=== PATIENT | male | born 1930 | race Caucasian/White ===

== ENCOUNTER 2017-04-01 09:57 | Observation (INO) | payer MEDICARE, BC ==
--- NOTE | 2017-04-01 10:15 | EDM.PDOC ---
ED HPI GENERAL MEDICAL PROBLEM - General Chief Complaint: General Stated Complaint: SYNCOPE & FALL. [facility] Time Seen by Provider: 04/01/17 09:57 Source of Information: Reports: Patient, EMS, EMS Notes Reviewed, Family, RN, RN Notes Reviewed History Limitations: Reports: No Limitations, Other ([place]) - History of Present Illness INITIAL COMMENTS - FREE TEXT/NARRATIVE: Pt presents to the ER per [facility] with c/o being weak and falling. Pt family states he fell last evening x2, and once today. Daughter states his has been ill recently as well. Pt states history of atrial fibrillation on Coumadin. For that reason, and patient age, a trauma code was called. Patient denies hitting his head or losing consciousness. Admits to pain in the sternum/ xyphoid process area as he states he hit the table on the way down. Pt is not in a c-collar or spine boarded upon arrival to the department. Patient denies any dizziness prior to falling. Patient states his right lower leg and foot have been edematous for over a year. Pt is alert and talking upon arrival, does have a history of dementia. GCS upon arrival was 15. Rates pain 2/10. Onset: Sudden Onset Date: 03/31/17 Location: Reports: Chest, Abdomen Middle Chest Pain Score (Numeric/FACES): 6 - Related Data Allergies Allergy/AdvReac Type Severity Reaction Status Date / Time oxycodone Allergy Confusion Verified 04/01/17 12:35 Home Meds: Home Meds Metoprolol Tartrate [Lopressor] 50 mg PO DAILY 04/01/17 [History] Simvastatin [Zocor] 1 tab PO DAILY 04/01/17 [History] Warfarin [Coumadin] 1 tab PO DAILY 04/01/17 [History] metFORMIN HCl [Metformin HCl] 1 tab PO TID 04/01/17 [History] ED ROS GENERAL - Review of Systems Review Of Systems: ROS reveals no pertinent complaints other than HPI. ED EXAM, GENERAL - Physical Exam Exam: See Below Exam Limited By: Other ([place]) Eye Exam: Bilateral Eye: EOMI, Normal Inspection, PERRL (Sluggish) Ears: Normal External Exam, Hearing Loss, Other (Hearing aids bilaterally) Ear Exam: Bilateral Ear: Auricle Normal, Canal Normal, TM normal Nose: Normal Inspection Throat/Mouth: Normal Inspection, Normal Voice, No Airway Compromise Head: Atraumatic, Normocephalic Neck: Normal Inspection, Supple, Non-Tender, Full Range of Motion Respiratory/Chest: No Respiratory Distress, No Accessory Muscle Use, Decreased Breath Sounds, Crackles (throughout), Other (tenderness to sternum/xyphoid process/lower right rib cage) Cardiovascular: Normal Peripheral Pulses, Irregularly Irregular, Other (Edema right lower leg/foot) Peripheral Pulses: 1+: Dorsalis Pedis (L), Dorsalis Pedis (R), 2+: Radial (L), Radial (R) GI/Abdominal: Normal Bowel Sounds, Soft, Tender (RUQ) (Male) Exam: Deferred Rectal (Males) Exam: Deferred Back Exam: Normal Inspection, Decreased Range of Motion Extremities: Normal Inspection, Normal Range of Motion, Non-Tender, Normal Capillary Refill. No: No Pedal Edema Neurological: Alert, Oriented, No Motor/Sensory Deficits, Other (Hx dementia) Psychiatric: Normal Affect, Normal Mood Skin Exam: Warm, Dry, Intact, Normal Color, No Rash Lymphatic: No Adenopathy EKG INTERPRETATION EKG Date: 04/01/17 Time: 10:02 Rhythm: A-Fib Rate (Beats/Min): 70 Comparison: NA - No Prior EKG Course - Vital Signs Last Recorded V/S: Last Vital Signs Temp 97 F 04/01/17 10:00 Pulse 71 04/01/17 10:00 Resp 20 04/01/17 10:00 BP 171/90 H 04/01/17 10:00 Pulse Ox 98 04/01/17 10:00 - Orders/Labs/Meds Orders: Active Orders 24 hr Category Date Time Status Patient Status [ADT] Routine ADT 04/01/17 12:38 Active Antiembolic Devices [RC] PER UNIT ROUTINE Care 04/01/17 12:39 Active EKG Documentation Completion [RC] STAT Care 04/01/17 09:59 Active Glucose [Blood Glucose Check, Bedside] [RC] QIDACANDBED Care 04/01/17 12:35 Active Oxygen Therapy [RC] PRN Care 04/01/17 12:38 Active Oxygen Therapy, ED [RC] ASDIRECTED Care 04/01/17 10:01 Active Peripheral IV Care [RC] . DIRECTED Care 04/01/17 10:02 Active RT Aerosol Therapy [RC] ASDIRECTED Care 04/01/17 12:37 Active Telemetry Monitoring [Cardiac Monitoring] [RC] . Care 04/01/17 12:37 Active DIRECTED Up With Assistance [RC] ASDIRECTED Care 04/01/17 12:38 Active VTE/DVT Education [RC] PER UNIT ROUTINE Care 04/01/17 12:38 Active Vital Signs [RC] Q4H Care 04/01/17 12:38 Active OT Evaluation and Treatment [CONS] Routine Cons 04/01/17 12:35 Active PT Evaluation and Treatment [CONS] Routine Cons 04/01/17 12:35 Active Consistent Carbohydrate Diet [DIET] Diet 04/01/17 Dinner Active Chest 2V [CR] Urgent Exams 04/01/17 10:01 Stop Req BASIC METABOLIC PANEL,BMP [CHEM] AM Lab 04/02/17 05:15 Ordered CBC WITH AUTO DIFF [HEME] AM Lab 04/02/17 05:15 Ordered INR,PT,PROTHROMBIN TIME [COAG] AM Lab 04/02/17 05:11 Ordered INR,PT,PROTHROMBIN TIME [COAG] AM Lab 04/03/17 05:11 Ordered INR,PT,PROTHROMBIN TIME [COAG] AM Lab 04/04/17 05:11 Ordered INR,PT,PROTHROMBIN TIME [COAG] AM Lab 04/05/17 05:11 Ordered INR,PT,PROTHROMBIN TIME [COAG] AM Lab 04/06/17 05:11 Ordered INR,PT,PROTHROMBIN TIME [COAG] AM Lab 04/07/17 05:11 Ordered UA W/MICROSCOPIC [URIN] Stat Lab 04/01/17 09:59 Ordered Acetaminophen [Tylenol] Med 04/01/17 12:38 Active 650 mg PO Q4H PRN Albuterol/Ipratropium [DuoNeb 3.0-0.5 MG/3 ML] Med 04/01/17 12:36 Active 3 ml NEB Q6HRRT PRN Insulin Aspart [NovoLOG] Med 04/01/17 17:00 Active See Protocol SUBCUT TIDAC Metoprolol Succinate [Toprol XL] Med 04/02/17 09:00 Active 50 mg PO DAILY Simvastatin [Zocor] Med 04/02/17 21:00 Active 20 mg PO BEDTIME Sodium Chloride 0.9% [Saline Flush] Med 04/01/17 09:59 Active 10 ml FLUSH ASDIRECTED PRN Warfarin Pharmacy to Dose [Pharmacy to Dose - Warfarin] Med 04/01/17 12:45 Pending 1 dose .XX ASDIRECTED Zolpidem [Ambien] Med 04/01/17 12:38 Active 5 mg PO BEDTIME PRN metFORMIN [Glucophage] Med 04/01/17 18:00 Active 500 mg PO TIDMEALS Antiembolic Hose [OM.PC] Per Unit Routine Oth 04/01/17 12:39 Ordered Peripheral IV Insertion Adult [OM.PC] Stat Oth 04/01/17 09:59 Ordered Resuscitation Status Routine Resus Stat 04/01/17 12:38 Ordered Medication Orders Acetaminophen (Tylenol) 650 mg PO Q4H PRN PRN Reason: Pain (Mild 1-3)/fever Albuterol/Ipratropium (Duoneb 3.0-0.5 Mg/3 Ml) 3 ml NEB Q6HRRT PRN PRN Reason: sob Insulin Aspart (Novolog) 0 unit SUBCUT TIDAC GABRIELLE PRN Reason: Protocol Metformin HCl (Glucophage) 500 mg PO TIDMEALS GABRIELLE Metoprolol Succinate (Toprol Xl) 50 mg PO DAILY GABRIELLE Simvastatin (Zocor) 20 mg PO BEDTIME GAB[facility] Sodium Chloride (Saline Flush) 10 ml FLUSH ASDIRECTED PRN PRN Reason: Keep Vein Open Warfarin Sodium (Pharmacy To Dose - Warfarin) 1 dose .XX ASDIRECTED GABRIELLE Zolpidem Tartrate (Ambien) 5 mg PO BEDTIME PRN PRN Reason: Sleep Labs: Laboratory Tests 04/01/17 04/01/17 04/01/17 Range/Units 10:16 10:16 10:16 WBC 8.7 (5.0-10.0) 10^3/uL RBC 5.39 (4.6-6.2) 10^6/uL Hgb 16.6 (14.0-18.0) g/dL Hct 49.4 (40.0-54.0) % MCV 91.7 (80-100) fL MCH 30.8 (27.0-34.0) pg MCHC 33.6 (33.0-35.0) g/dL Plt Count 154 (150-450) 10^3/uL Neut % (Auto) 68.6 (42.2-75.2) % Lymph % (Auto) 17.4 L (20.5-50.1) % [place] % (Auto) 8.9 H (2-8) % Eos % (Auto) 4.6 H (1.0-3.0) % Baso % (Auto) 0.5 (0.0-1.0) % PT (9.0-12.0) SEC INR (0.9-1.2) Sodium 141 (135-145) mmol/L Potassium 4.1 (3.6-5.0) mmol/L Chloride 104 (101-111) mmol/L Carbon Dioxide 28.0 (21.0-31.0) mmol/L Anion Gap 13.1 BUN 21 H (7-18) mg/dL Creatinine 1.5 H (0.6-1.3) mg/dL Est Cr Clr Drug Dosing TNP Estimated GFR (MDRD) 44 BUN/Creatinine Ratio 14.00 Glucose 121 H (74-105) mg/dL Uric Acid (2.6-7.2) mg/dL Calcium 9.5 (8.4-10.2) mg/dl Total Bilirubin 1.0 (0.2-1.0) mg/dL AST 27 (10-42) IU/L ALT 15 (10-60) IU/L Alkaline Phosphatase 46 (42-121) IU/L Creatine Kinase 112 (26-174) IU/L Creatine Kinase Index 4.9 H (0-2.4) % CK-MB (CK-2) 5.50 H (0.4-4.7) ng/mL Troponin I < 0.02 (0.00-0.02) ng/ml B-Natriuretic Peptide 312 H (0-100) pg/ml Total Protein 7.3 (6.7-8.2) g/dl Albumin 3.9 (3.2-5.5) g/dl Globulin 3.4 Albumin/Globulin Ratio 1.15 18 04/01/17 Range/Units 10:16 10:16 WBC (5.0-10.0) 10^3/uL RBC (4.6-6.2) 10^6/uL Hgb (14.0-18.0) g/dL Hct (40.0-54.0) % MCV (80-100) fL MCH (27.0-34.0) pg MCHC (33.0-35.0) g/dL Plt Count (150-450) 10^3/uL Neut % (Auto) (42.2-75.2) % Lymph % (Auto) (20.5-50.1) % [place] % (Auto) (2-8) % Eos % (Auto) (1.0-3.0) % Baso % (Auto) (0.0-1.0) % PT 22.9 H (9.0-12.0) SEC INR 2.3 H (0.9-1.2) Sodium (135-145) mmol/L Potassium (3.6-5.0) mmol/L Chloride (101-111) mmol/L Carbon Dioxide (21.0-31.0) mmol/L Anion Gap BUN (7-18) mg/dL Creatinine (0.6-1.3) mg/dL Est Cr Clr Drug Dosing Estimated GFR (MDRD) BUN/Creatinine Ratio Glucose (74-105) mg/dL Uric Acid 9.2 H (2.6-7.2) mg/dL Calcium (8.4-10.2) mg/dl Total Bilirubin (0.2-1.0) mg/dL AST (10-42) IU/L ALT (10-60) IU/L Alkaline Phosphatase (42-121) IU/L Creatine Kinase (26-174) IU/L Creatine Kinase Index (0-2.4) % CK-MB (CK-2) (0.4-4.7) ng/mL Troponin I (0.00-0.02) ng/ml B-Natriuretic Peptide (0-100) pg/ml Total Protein (6.7-8.2) g/dl Albumin (3.2-5.5) g/dl Globulin Albumin/Globulin Ratio Meds: Medications Generic Name Dose Route Start Last Admin Trade Name Freq PRN Reason Stop Dose Admin Acetaminophen 650 mg 04/01/17 12:38 Tylenol PO Q4H PRN Pain (Mild 1-3)/fever Albuterol/Ipratropium 3 ml 04/01/17 12:36 Duoneb 3.0-0.5 Mg/3 Ml NEB Q6HRRT PRN sob Insulin Aspart 0 unit 04/01/17 17:00 Novolog SUBCUT TIDAC GABRIELLE Protocol Metformin HCl 500 mg 04/01/17 18:00 Glucophage PO TIDMEALS [facility] Metoprolol Succinate 50 mg 04/02/17 09:00 Toprol Xl PO DAILY [facility] Simvastatin 20 mg 04/02/17 21:00 Zocor PO BEDTIME [facility] Sodium Chloride 10 ml 04/01/17 09:59 Saline Flush FLUSH ASDIRECTED PRN Keep Vein Open Warfarin Sodium 1 dose 04/01/17 12:45 Pharmacy To Dose - Warfarin .XX ASDIRECTED [facility] Zolpidem Tartrate 5 mg 04/01/17 12:38 Ambien PO BEDTIME PRN Sleep - Radiology Interpretation Free Text/Narrative:: Chest CT without contrast: Gallstones, no acute findings See rad report Departure - Departure Time of Disposition: 12:25 Disposition: Refer to Observation Clinical Impression: Weakness Chronic renal failure Qualifiers: Chronic kidney disease stage: unspecified stage Qualified Code(s): N18.9 - Chronic kidney disease, unspecified Fall at home Qualifiers: Encounter type: initial encounter Qualified Code(s): W19.XXXA - Unspecified fall, initial encounter - Discharge Information Referrals: PCP,None [Primary Care Provider] - Forms: ED Department Discharge - My Orders Last 24 Hours: My Active Orders 04/01/17 09:59 EKG Documentation Completion [RC] STAT UA W/MICROSCOPIC [URIN] Stat Sodium Chloride 0.9% [Saline Flush] 10 ml FLUSH ASDIRECTED PRN Peripheral IV Insertion Adult [OM.PC] Stat 04/01/17 10:01 Oxygen Therapy, ED [RC] ASDIRECTED Chest 2V [CR] Urgent 04/01/17 10:02 Peripheral IV Care [RC] . DIRECTED - Assessment/Plan Last 24 Hours: My Active Orders 04/01/17 09:59 EKG Documentation Completion [RC] STAT UA W/MICROSCOPIC [URIN] Stat Sodium Chloride 0.9% [Saline Flush] 10 ml FLUSH ASDIRECTED PRN Peripheral IV Insertion Adult [OM.PC] Stat 04/01/17 10:01 Oxygen Therapy, ED [RC] ASDIRECTED Chest 2V [CR] Urgent 04/01/17 10:02 Peripheral IV Care [RC] . DIRECTED
[2017-04-01 10:44] LABS: CHLORIDE,CL 104 mmol/L (101-111); SODIUM,NA 141 mmol/L (135-145)
--- NOTE | 2017-04-01 11:35 | CT ---
CLINICAL HISTORY: 86-year-old 188 pound hypertensive, diabetic male on Coumadin with chest pain/SOB ( 3 falls in the past 2 days, hit table anterior chest wall and complaining of lower rib pain R >L, in midline, near sternum). SCAN TECHNIQUE: Volume acquisition of data from an emergency unenhanced CT scan of the chest and uppe r abdomen obtained while the patient was lying supine on the Siemens multislice scanner [place], [place]. All data archived in the PACS system for storage, reformatting ax ial/sagittal/coronal planes and study (lung/bone/mediastinal windows). INTERPRETATION: 1. Extensive atheromatous disease, i.e., calcifications coronary arteries, aortic valve, and normal c aliber ectatic thoracic aorta. 2. Cardiomegaly. No pericardial effusion, cephalization of vascular flow, signs of alveolar edema or dependent pleural fluid effusion. 3. Cardiac pacemaker anterior upper left chest wall (leads intact). 4. No sign of rib fracture, acute spine fracture or spondylolisthesis (old compression fracture T2). Hypertrophic spondylosis. 5. Peribronchial "cuffing", numerous subpleural cysts or blebs, and platelike atelectasis in the righ t lung base posteriorly. 6. No lung mass or significant hilar/mediastinal lymphadenopathy. No lung contusion. No focal lobar p neumonia. No pneumothorax. 7. Cholelithiasis. Unenhanced upper abdominal viscera otherwise unremarkable. No ascites or retroperi toneal hematoma. CONCLUSION: Cholelithiasis. Cardiomegaly without signs of heart failure (cardiac pacemaker). Liver an d spleen unremarkable. No acute chest fracture, lung contusion or pneumothorax. No hematoma, pleural effusion or ascites.
[2017-04-01] MEDS ORDERED: Albuterol/Ipratropium 3.0-0.5 MG/3 ML Neb Soln NEB PRN (12:36)
[2017-04-01] MEDS ORDERED: Zolpidem 5 MG Tab PO PRN (12:38)
[2017-04-01] MEDS ORDERED: Acetaminophen 325 MG Tab PO PRN (12:38)
--- NOTE | 2017-04-01 12:47 | PCM.HP ---
H&P History of Present Illness - General Date of Service: 04/01/17 Admit Problem/Dx: Admission Diagnosis/Problem Admission Diagnosis/Problem Fall Source of Information: Patient, Family - History of Present Illness Initial Comments - Free Text/Narative: The patient is an 86-year-old gentleman with a history of diabetes, atrial fibrillation, on anticoagulation, COPD not on treatment. The patient has been living with at home and normally walking with a walker. appear to have had recently an upper respiratory tract infection. The patient did not have fever or chills are similar symptoms though. He has a chronic nasal drainage and cough but that did not change. On 31 March and 01 April morning the patient fell 3 times. He was not using the walker one time. The other time that he fell To the kitchen counter. No apparent loss of consciousness. The patient feels this was an accident. No apparent chest pain, nausea, syncopal episode associated with this. He does complain of anterior lower chest and the right sided lower rib cage pain since then he fell into the kitchen counter. He has been having right lower extremity swelling for about 2 months he says. Middle Chest Pain Score (Numeric/FACES): 6 - Related Data Allergies/Adverse Reactions: Allergies Allergy/AdvReac Type Severity Reaction Status Date / Time oxycodone Allergy Confusion Verified 04/01/17 12:35 Home Medications: Home Meds Metoprolol Tartrate [Lopressor] 50 mg PO DAILY 04/01/17 [History] Simvastatin [Zocor] 1 tab PO DAILY 04/01/17 [History] Warfarin [Coumadin] 1 tab PO DAILY 04/01/17 [History] metFORMIN HCl [Metformin HCl] 1 tab PO TID 04/01/17 [History] Past Medical History Cardiovascular History: Reports: Afib, CAD, High Cholesterol, Hypertension Respiratory History: Reports: COPD Musculoskeletal History: Reports: Gout Endocrine/Metabolic History: Reports: Diabetes, Type II - Past Surgical History Cardiovascular Surgical History: Reports: Pacer Social & Family History - Tobacco Use Smoking Status *Q: Former Smoker Years of Tobacco use: 20 Packs/Tins Daily: 1 Used Tobacco, but Quit: Yes Month Tobacco Last Used: 1989 - Alcohol Use Days Per Week of Alcohol Use: 2 Number of Drinks Per Day: 2 Total Drinks Per Week: 4 - Recreational Drug Use Recreational Drug Use: No H&P Review of Systems - Review of Systems: Review Of Systems: See Below General: Denies: Fever, Chills Pulmonary: Denies: Shortness of Breath, Wheezing Cardiovascular: Reports: Chest Pain (Since the fall), Edema (Right lower extremity). Denies: Palpitations Gastrointestinal: Denies: Abdominal Pain Psychiatric: Reports: Other (Has mild dementia). Denies: Confusion Neurological: Denies: Seizure, Syncope Exam - Exam Exam: See Below - Vital Signs Vital Signs: Last Vital Signs Temp 36.1 C 04/01/17 10:00 Pulse 71 04/01/17 10:00 Resp 20 04/01/17 10:00 BP 171/90 H 04/01/17 10:00 Pulse Ox 98 04/01/17 10:00 Weight: 85.275 kg - Exam Quality Assessment: Supplemental Oxygen General: Alert, Oriented, Cooperative Neck: Supple Lungs: Normal Respiratory Effort, Decreased Breath Sounds. No: Rhonchi, Wheezing Cardiovascular: Irregular Rhythm. No: Bradycardia, Tachycardia Extremities: Pedal Edema (Right lower extremity 1-2+) Skin: Warm, Dry Neuro Extensive - Mental Status: Alert, Oriented x3, Normal Mood/Affect, Normal Cognition Neuro Extensive - Motor, Sensory, Reflexes: No: Receptive Aphasia, Expressive Aphasia, Hemeplagia (R), Hemeplagia (L), Abnormal Finger to Nose Psychiatric: Alert, Normal Affect, Normal Mood - Patient Data Result Diagrams: 04/01/17 10:16 04/01/17 10:16 EKG INTERPRETATION EKG Date: 04/01/17 Rhythm: A-Fib *Q Meaningful Use (ADM) - VTE *Q VTE Criteria *Q: - Stroke *Q Stroke Criteria *Q: - AMI *Q AMI Criteria *Q: - Problem List (1) Chronic renal failure SNOMED Code(s): 78523764 ICD Code: N18.9 - CHRONIC KIDNEY DISEASE, UNSPECIFIED Status: Acute Current Visit: Yes Qualifiers: Chronic kidney disease stage: unspecified stage Qualified Code(s): N18.9 - Chronic kidney disease, unspecified (2) Fall at home SNOMED Code(s): 25303441 ICD Code: W19.XXXA - UNSPECIFIED FALL, INITIAL ENCOUNTER; Y92.009 - UNSP PLACE IN UNSP NON-INSTITUT (PRIVATE) RESIDENCE PLACE Status: Acute Current Visit: Yes Qualifiers: Encounter type: initial encounter Qualified Code(s): W19.XXXA - Unspecified fall, initial encounter; Y92.009 - Unspecified place in unspecified non-institutional (private) residence as the place of occurrence of the external cause; Y92.009 - Unspecified place in unspecified non-institutional ( private) residence as the place of occurrence of the external cause (3) Weakness SNOMED Code(s): 05966017 ICD Code: R53.1 - WEAKNESS Status: Acute Current Visit: Yes Problem List Initiated/Reviewed/Updated: Yes Orders Last 24hrs: Active Orders 24 hr Category Date Time Status Patient Status [ADT] Routine ADT 04/01/17 12:38 Ordered Antiembolic Devices [RC] PER UNIT ROUTINE Care 04/01/17 12:39 Ordered Glucose [Blood Glucose Check, Bedside] [RC] QIDACANDBED Care 04/01/17 12:35 Ordered Oxygen Therapy [RC] PRN Care 04/01/17 12:38 Ordered RT Aerosol Therapy [RC] ASDIRECTED Care 04/01/17 12:37 Ordered Telemetry Monitoring [Cardiac Monitoring] [RC] . Care 04/01/17 12:37 Ordered DIRECTED Up With Assistance [RC] ASDIRECTED Care 04/01/17 12:38 Ordered VTE/DVT Education [RC] PER UNIT ROUTINE Care 04/01/17 12:38 Ordered Vital Signs [RC] Q4H Care 04/01/17 12:38 Ordered OT Evaluation and Treatment [CONS] Routine Cons 04/01/17 12:35 Ordered PT Evaluation and Treatment [CONS] Routine Cons 04/01/17 12:35 Ordered Consistent Carbohydrate Diet [DIET] Diet 04/01/17 Dinner Ordered BASIC METABOLIC PANEL,BMP [CHEM] AM Lab 04/02/17 05:15 Ordered CBC WITH AUTO DIFF [HEME] AM Lab 04/02/17 05:15 Ordered INR,PT,PROTHROMBIN TIME [COAG] AM Lab 04/02/17 05:11 Ordered INR,PT,PROTHROMBIN TIME [COAG] AM Lab 04/03/17 05:11 Ordered INR,PT,PROTHROMBIN TIME [COAG] AM Lab 04/04/17 05:11 Ordered INR,PT,PROTHROMBIN TIME [COAG] AM Lab 04/05/17 05:11 Ordered INR,PT,PROTHROMBIN TIME [COAG] AM Lab 04/06/17 05:11 Ordered INR,PT,PROTHROMBIN TIME [COAG] AM Lab 04/07/17 05:11 Ordered INR,PT,PROTHROMBIN TIME [COAG] Routine Lab 04/01/17 12:35 Ordered Acetaminophen [Tylenol] Med 04/01/17 12:38 Ordered 650 mg PO Q4H PRN Albuterol/Ipratropium [DuoNeb 3.0-0.5 MG/3 ML] Med 04/01/17 12:36 Ordered 3 ml NEB Q6HRRT PRN Insulin Aspart [NovoLOG] Med 04/01/17 17:00 Ordered See Protocol SUBCUT TIDAC Metoprolol Succinate [Toprol XL] Med 04/02/17 09:00 Ordered 1 tab PO DAILY Simvastatin [Zocor] Med 04/02/17 09:00 Ordered 1 tab PO DAILY Warfarin Pharmacy to Dose [Pharmacy to Dose - Warfarin] Med 04/01/17 12:45 Ordered 1 dose .XX ASDIRECTED Zolpidem [Ambien] Med 04/01/17 12:38 Ordered 5 mg PO BEDTIME PRN metFORMIN [Glucophage] Med 04/01/17 14:00 Ordered 1 tab PO TID Antiembolic Hose [OM.PC] Per Unit Routine Oth 04/01/17 12:39 Ordered Resuscitation Status Routine Resus Stat 04/01/17 12:38 Ordered Medication Orders Acetaminophen (Tylenol) 650 mg PO Q4H PRN PRN Reason: Pain (Mild 1-3)/fever Albuterol/Ipratropium (Duoneb 3.0-0.5 Mg/3 Ml) 3 ml NEB Q6HRRT PRN PRN Reason: sob Insulin Aspart (Novolog) 0 unit SUBCUT TIDAC GABRIELLE PRN Reason: Protocol Metformin HCl (Glucophage) 500 mg PO TIDMEALS GABRIELLE Metoprolol Succinate (Toprol Xl) 50 mg PO DAILY [facility] Simvastatin (Zocor) 20 mg PO BEDTIME [facility] Sodium Chloride (Saline Flush) 10 ml FLUSH ASDIRECTED PRN PRN Reason: Keep Vein Open Warfarin Sodium (Pharmacy To Dose - Warfarin) 1 dose .XX ASDIRECTED [facility] Zolpidem Tartrate (Ambien) 5 mg PO BEDTIME PRN PRN Reason: Sleep Assessment/Plan Comment:: The patient is an 86-year-old gentleman who has been living at home with . He has a history of atrial fibrillation, diabetes, chronic anticoagulation, COPD. #1 falls No apparent associated syncope, neurological deficit, seizure, chest pain We'll consult physical and occupational therapy. Follow the patient's symptoms closely We'll monitor on telemetry for potential arrhythmia Will follow blood sugars for potential hypoglycemia Follow vital signs #2 right lower extremity edema Concern for possible DVT although the patient has been on Coumadin I doubt that there is pulmonary embolism associated with this. The following does not appear to be syncopal Will check INR Will continue Coumadin and maintain a therapeutic level At this point I don't think vascular ultrasound would change the treatment plan and the need for anticoagulation. #3 diabetes Continue metformin Follow blood sugars and use supplemental insulin and hypoglycemia treatment as needed #4 atrial fibrillation Appears to have controlled ventricular rate, continue metoprolol, monitor on telemetry #5 history of COPD The patient has not been on therapy Will monitor for possible oxygen need Target saturation will be 88 and above
[2017-04-01] MEDS: Insulin Aspart 100 Units/ML 3 ML Pen SUBCUT SCH (17:16)
[2017-04-01] MEDS: metFORMIN 500 MG Tab PO SCH (18:28)
[2017-04-01] MEDS: Sodium Chloride 0.9% 10 ML Syringe FLUSH PRN (20:31)
[2017-04-02 06:42] LABS: CHLORIDE,CL 105 mmol/L (101-111); SODIUM,NA 141 mmol/L (135-145)
[2017-04-02] MEDS: metFORMIN 500 MG Tab PO SCH (08:38)
[2017-04-02] MEDS: Insulin Aspart 100 Units/ML 3 ML Pen SUBCUT SCH (08:39)
[2017-04-02] MEDS ORDERED: Metoprolol Succinate 50 MG Tab.ER PO SCH (09:00)
--- NOTE | 2017-04-02 10:06 | PCM.DCSUM1 ---
Discharge Summary - Hospital Course Free Text/Narrative:: The patient is an 86-year-old gentleman who has been living at home with . He has a history of atrial fibrillation, diabetes, chronic anticoagulation, COPD. Presented with fall episodes #1 falls No apparent associated syncope, neurological deficit, seizure, cardiac event Consulted physical and occupational therapy. Family did not want home health visit. on telemetry there was no arrhythmia no hypoglycemia stable vital signs #2 right lower extremity edema Concern for possible DVT although the patient has been on Coumadin I doubt that there is pulmonary embolism associated with this. INR remained therapeutic Will continue Coumadin and maintain a therapeutic level suggested f/up at the clinic for vascular ultrasound. #3 diabetes Continue metformin #4 atrial fibrillation Appears to have controlled ventricular rate, continue metoprolol #5 history of COPD The patient has not been on therapy Was monitored for possible oxygen need - did not need at rest, night, walking - Discharge Data Discharge Date: 04/02/17 Discharge Disposition: Home, Self-Care 01 Condition: Good - Discharge Diagnosis/Problem(s) (1) Chronic renal failure SNOMED Code(s): 29229440 ICD Code: N18.9 - CHRONIC KIDNEY DISEASE, UNSPECIFIED Status: Acute Current Visit: Yes Qualifiers: Chronic kidney disease stage: unspecified stage Qualified Code(s): N18.9 - Chronic kidney disease, unspecified (2) Fall at home SNOMED Code(s): 42097773 ICD Code: W19.XXXA - UNSPECIFIED FALL, INITIAL ENCOUNTER; Y92.009 - UNSP PLACE IN UNSP NON-INSTITUT (PRIVATE) RESIDENCE PLACE Status: Acute Current Visit: Yes Qualifiers: Encounter type: initial encounter Qualified Code(s): W19.XXXA - Unspecified fall, initial encounter; Y92.009 - Unspecified place in unspecified non-institutional (private) residence as the place of occurrence of the external cause; Y92.009 - Unspecified place in unspecified non-institutional ( private) residence as the place of occurrence of the external cause (3) Weakness SNOMED Code(s): 09469043 ICD Code: R53.1 - WEAKNESS Status: Acute Current Visit: Yes - Patient Instructions Diet: Diabetic Diet Activity: As Tolerated - Discharge Plan Home Medications: Home Meds RX: Metoprolol Tartrate [Lopressor] 50 mg PO DAILY 04/01/17 [History] RX: Simvastatin [Zocor] 20 mg PO DAILY 04/01/17 [History] RX: Warfarin [Coumadin] 3 mg PO DAILY 04/01/17 [History] RX: metFORMIN HCl [Metformin HCl] 500 mg PO TID 04/01/17 [History] RX: Albuterol/Ipratropium [DuoNeb 3.0-0.5 MG/3 ML] 3 ml NEB Q6HRRT PRN neb [Rx] Patient Handouts: Fall Prevention in the Home, [id number] Forms: ED Department Discharge Referrals: PCP,None [Ordering Only Provider] - ([place] in 2-3 days) - Discharge Summary/Plan Comment DC Time >30 min.: No - General Info Date of Service: 04/02/17 Functional Status: Reports: Pain Controlled, Tolerating Diet, Ambulating, Urinating (has known urinary retention) - Review of Systems General: Denies: Fever Pulmonary: Denies: Shortness of Breath Cardiovascular: Denies: Palpitations Gastrointestinal: Denies: Abdominal Pain Neurological: Denies: Confusion, Dizziness - Patient Data Vitals - Most Recent: Last Vital Signs Temp 36.8 C 04/02/17 07:32 Pulse 75 04/02/17 08:39 Resp 20 04/02/17 07:32 BP 122/72 04/02/17 08:39 Pulse Ox 94 L 04/02/17 07:32 Weight - Most Recent: 83.688 kg I&O - Last 24 hours: Intake & Output 04/01/17 04/02/17 04/02/17 22:59 06:59 14:59 Intake Total 200 Output Total 1325 450 Balance -1325 -250 Lab Results - Last 24 hrs: Laboratory Results - last 24 hr 04/01/17 04/01/17 04/01/17 Range/Units 15:25 17:04 20:35 WBC (5.0-10.0) 10^3/uL RBC (4.6-6.2) 10^6/uL Hgb (14.0-18.0) g/dL Hct (40.0-54.0) % MCV (80-100) fL MCH (27.0-34.0) pg MCHC (33.0-35.0) g/dL Plt Count (150-450) 10^3/uL Neut % (Auto) (42.2-75.2) % Lymph % (Auto) (20.5-50.1) % [place] % (Auto) (2-8) % Eos % (Auto) (1.0-3.0) % Baso % (Auto) (0.0-1.0) % PT (9.0-12.0) SEC INR (0.9-1.2) Sodium (135-145) mmol/L Potassium (3.6-5.0) mmol/L Chloride (101-111) mmol/L Carbon Dioxide (21.0-31.0) mmol/L Anion Gap BUN (7-18) mg/dL Creatinine (0.6-1.3) mg/dL Est Cr Clr Drug Dosing Estimated GFR (MDRD) Glucose (74-105) mg/dL POC Glucose 144 H 159 H (83-110) mg/dl Calcium (8.4-10.2) mg/dl Urine Color Yellow (YELLOW) Urine Appearance Clear (CLEAR) Urine pH 5.5 (5.0-9.0) Ur Specific [place] 1.015 (1.005-1.030) Urine Protein Trace H (NEGATIVE) Urine Glucose (UA) Negative (NEGATIVE) Urine Ketones Negative (NEGATIVE) Urine Occult Blood Trace-lysed H (NEGATIVE) Urine Nitrite Negative (NEGATIVE) Urine Bilirubin Negative (NEGATIVE) Urine Urobilinogen 0.2 (0.2-1.0) mg/dL Ur Leukocyte Esterase Negative (NEGATIVE) Urine RBC 0-5 /HPF Urine WBC 0-5 (0-5/HPF) /HPF Ur Epithelial Cells Rare /HPF Urine Bacteria Occasional (0-FEW/HPF) /HPF Urine Mucus Occasional /LPF 04/02/17 04/02/17 04/02/17 Range/Units 06:05 06:05 06:05 WBC 7.1 (5.0-10.0) 10^3/uL RBC 5.04 (4.6-6.2) 10^6/uL Hgb 15.4 (14.0-18.0) g/dL Hct 46.3 (40.0-54.0) % MCV 91.9 (80-100) fL MCH 30.6 (27.0-34.0) pg MCHC 33.3 (33.0-35.0) g/dL Plt Count 152 (150-450) 10^3/uL Neut % (Auto) 66.0 (42.2-75.2) % Lymph % (Auto) 19.0 L (20.5-50.1) % [place] % (Auto) 8.5 H (2-8) % Eos % (Auto) 5.9 H (1.0-3.0) % Baso % (Auto) 0.6 (0.0-1.0) % PT 25.7 H (9.0-12.0) SEC INR 2.5 H (0.9-1.2) Sodium 141 (135-145) mmol/L Potassium 3.8 (3.6-5.0) mmol/L Chloride 105 (101-111) mmol/L Carbon Dioxide 26.0 (21.0-31.0) mmol/L Anion Gap 13.8 BUN 19 H (7-18) mg/dL Creatinine 1.6 H (0.6-1.3) mg/dL Est Cr Clr Drug Dosing TNP Estimated GFR (MDRD) 41 Glucose 115 H (74-105) mg/dL POC Glucose (83-110) mg/dl Calcium 9.0 (8.4-10.2) mg/dl Urine Color (YELLOW) Urine Appearance (CLEAR) Urine pH (5.0-9.0) Ur Specific [place] (1.005-1.030) Urine Protein (NEGATIVE) Urine Glucose (UA) (NEGATIVE) Urine Ketones (NEGATIVE) Urine Occult Blood (NEGATIVE) Urine Nitrite (NEGATIVE) Urine Bilirubin (NEGATIVE) Urine Urobilinogen (0.2-1.0) mg/dL Ur Leukocyte Esterase (NEGATIVE) Urine RBC /HPF Urine WBC (0-5/HPF) /HPF Ur Epithelial Cells /HPF Urine Bacteria (0-FEW/HPF) /HPF Urine Mucus /LPF 04/02/17 Range/Units 07:24 WBC (5.0-10.0) 10^3/uL RBC (4.6-6.2) 10^6/uL Hgb (14.0-18.0) g/dL Hct (40.0-54.0) % MCV (80-100) fL MCH (27.0-34.0) pg MCHC (33.0-35.0) g/dL Plt Count (150-450) 10^3/uL Neut % (Auto) (42.2-75.2) % Lymph % (Auto) (20.5-50.1) % [place] % (Auto) (2-8) % Eos % (Auto) (1.0-3.0) % Baso % (Auto) (0.0-1.0) % PT (9.0-12.0) SEC INR (0.9-1.2) Sodium (135-145) mmol/L Potassium (3.6-5.0) mmol/L Chloride (101-111) mmol/L Carbon Dioxide (21.0-31.0) mmol/L Anion Gap BUN (7-18) mg/dL Creatinine (0.6-1.3) mg/dL Est Cr Clr Drug Dosing Estimated GFR (MDRD) Glucose (74-105) mg/dL POC Glucose 109 (83-110) mg/dl Calcium (8.4-10.2) mg/dl Urine Color (YELLOW) Urine Appearance (CLEAR) Urine pH (5.0-9.0) Ur Specific [place] (1.005-1.030) Urine Protein (NEGATIVE) Urine Glucose (UA) (NEGATIVE) Urine Ketones (NEGATIVE) Urine Occult Blood (NEGATIVE) Urine Nitrite (NEGATIVE) Urine Bilirubin (NEGATIVE) Urine Urobilinogen (0.2-1.0) mg/dL Ur Leukocyte Esterase (NEGATIVE) Urine RBC /HPF Urine WBC (0-5/HPF) /HPF Ur Epithelial Cells /HPF Urine Bacteria (0-FEW/HPF) /HPF Urine Mucus /LPF Med Orders - Current: Current Medications Acetaminophen (Tylenol) 650 mg PO Q4H PRN PRN Reason: Pain (Mild 1-3)/fever Last Admin: 04/02/17 05:30 Dose: 650 mg Albuterol/Ipratropium (Duoneb 3.0-0.5 Mg/3 Ml) 3 ml NEB Q6HRRT PRN PRN Reason: sob Insulin Aspart (Novolog) 0 unit SUBCUT TIDAC [facility] PRN Reason: Protocol Last Admin: 04/02/17 08:39 Dose: Not Given Metformin HCl (Glucophage) 500 mg PO TIDMEALS [facility] Last Admin: 04/02/17 08:38 Dose: 500 mg Metoprolol Succinate (Toprol Xl) 50 mg PO DAILY [facility] Last Admin: 04/02/17 08:39 Dose: 50 mg Simvastatin (Zocor) 20 mg PO BEDTIME [facility] Sodium Chloride (Saline Flush) 10 ml FLUSH ASDIRECTED PRN PRN Reason: Keep Vein Open Last Admin: 04/01/17 20:31 Dose: 10 ml Warfarin Sodium (Pharmacy To Dose - Warfarin) 1 dose .XX ASDIRECTED GABRIELLE Warfarin Sodium (Coumadin) 3 mg PO ONETIME ONE Stop: 04/02/17 14:01 Zolpidem Tartrate (Ambien) 5 mg PO BEDTIME PRN PRN Reason: Sleep Discontinued Medications Warfarin Sodium (Coumadin) 3 mg PO ONETIME ONE Stop: 04/01/17 14:01 Last Admin: 04/01/17 15:50 Dose: 3 mg - Exam General: Reports: Alert, Oriented Neck: Reports: Supple Lungs: Reports: Normal Respiratory Effort, Decreased Breath Sounds Cardiovascular: Reports: Irregular Rhythm Extremities: Pedal Edema (r. leg ) Skin: Reports: Warm, Dry *Q Meaningful Use (DIS) - VTE *Q VTE Criteria *Q: - Stroke *Q Stroke Criteria *Q: - AMI *Q AMI Criteria *Q:
[2017-04-02] MEDS: Sodium Chloride 0.9% 10 ML Syringe FLUSH PRN (10:12)
[2017-04-02] MEDS ORDERED: Simvastatin 10 MG Tab PO SCH (21:00)
--- NOTE | 2017-04-06 13:55 | EKG ---
04/01/2017- RADHA LESLIE - FINDINGS: EKG per my reading shows atrial fibrillation with inferolateral T- wave inversion. [facility] /[id number]
== END 2017-04-02 10:40 | disposition home or self-care (01) ==
LOC: DL.ED 09:57 → DL.MS 11:42 → UNDOADMOB 11:42 → DL.MS 12:38
PROVIDERS: ADMIT Internal Medicine; ATTEND Internal Medicine
DX: R53.1 Weakness (principal); I48.91 Unspecified atrial fibrillation; J44.9 Chronic obstructive pulmonary disease, unspecified; R60.0 Localized edema; I12.9 Hypertensive chronic kidney disease with stage 1 through stage 4 chronic kidney disease, or unspecified chronic kidney disease; N18.9 Chronic kidney disease, unspecified; E78.00 Pure hypercholesterolemia, unspecified; E11.22 Type 2 diabetes mellitus with diabetic chronic kidney disease; W19.XXXA Unspecified fall, initial encounter; Y92.009 Unspecified place in unspecified non-institutional (private) residence as the place of occurrence of the external cause; Z87.891 Personal history of nicotine dependence; Z79.01 Long term (current) use of anticoagulants; Z79.84 Long term (current) use of oral hypoglycemic drugs; Z79.899 Other long term (current) drug therapy; Z88.6 Allergy status to analgesic agent
CPT/HCPCS: 36415; 71250; 80048; 80053; 81001; 82550; 82553; 82962; 83880; 84484; 84550; 85025; 85610; 93005; 93010; 97162; 97166; 99285; A9270; G0378; J7050; 99284

== ENCOUNTER 2017-07-19 19:42 | Observation (INO) | payer MEDICARE, BC ==
[2017-07-19] MEDS ORDERED: Metoprolol Tartrate 5 MG/5 ML SDV IVPUSH ONE (20:02)
[2017-07-19 20:18] LABS: CHLORIDE,CL 102 mmol/L (101-111); SODIUM,NA 138 mmol/L (135-145)
--- NOTE | 2017-07-19 21:32 | EDM.PDOC ---
ED HPI GENERAL MEDICAL PROBLEM - General Chief Complaint: Respiratory Problem Stated Complaint: AMBULANCE DIFFICULTY BREATHING Time Seen by Provider: 07/19/17 19:45 Source of Information: Reports: Patient History Limitations: Reports: No Limitations - History of Present Illness INITIAL COMMENTS - FREE TEXT/NARRATIVE: ED via [facility] from home. C/O chest apin and shortness of breath. Cough productive thick white phlegm starting this am. EMS noted decreased oxygen sats in 80's, O2 enroute. 93 % in ED. Patient denies c/o of chest pain or SOB on arrival. Fmaily noted patient c/o feet and legs swelling past few days. Onset: Today - Related Data Allergies Allergy/AdvReac Type Severity Reaction Status Date / Time oxycodone Allergy Confusion Verified 04/01/17 12:35 Home Meds: Home Meds Metoprolol Tartrate [Lopressor] 50 mg PO DAILY 04/01/17 [History] Simvastatin [Zocor] 20 mg PO DAILY 04/01/17 [History] Warfarin [Coumadin] 3 mg PO DAILY 04/01/17 [History] metFORMIN HCl [Metformin HCl] 500 mg PO TID 04/01/17 [History] Tamsulosin [Flomax] 1 tab PO DAILY 07/19/17 [History] Past Medical History Cardiovascular History: Reports: Afib, CAD, High Cholesterol, Hypertension, Pacemaker Respiratory History: Reports: COPD Musculoskeletal History: Reports: Gout Endocrine/Metabolic History: Reports: Diabetes, Type II Other Oncologic History: family reports skin cancer - Past Surgical History Cardiovascular Surgical History: Reports: Pacer Social & Family History - Tobacco Use Smoking Status *Q: Never Smoker - Caffeine Use Caffeine Use: Reports: Coffee - Recreational Drug Use Recreational Drug Use: No ED ROS GENERAL - Review of Systems Review Of Systems: ROS reveals no pertinent complaints other than HPI. ED EXAM, GENERAL - Physical Exam Exam: See Below Exam Limited By: No Limitations General Appearance: Alert, No Apparent Distress Eye Exam: Bilateral Eye: EOMI Ears: Hearing Loss Nose: Normal Inspection Throat/Mouth: Normal Inspection Head: Atraumatic, Normocephalic Neck: Normal Inspection, Full Range of Motion Respiratory/Chest: Decreased Breath Sounds, Rales (faint right). No: Wheezing Cardiovascular: Irregularly Irregular. No: No Edema (mid calf to pedal on left 1-2+ trace right), Tachycardia GI/Abdominal: Normal Bowel Sounds, Soft, Non-Tender Extremities: Normal Capillary Refill Neurological: Alert, Oriented, Other (converses with family appropriate) Psychiatric: Normal Affect, Anxious (mild) Skin Exam: Warm, Dry, Intact, Normal Color Course - Vital Signs Last Recorded V/S: Last Vital Signs Temp 98.4 F 07/19/17 21:49 Pulse 72 07/19/17 20:27 Resp 20 07/19/17 21:49 BP 175/108 H 07/19/17 21:49 Pulse Ox 93 L 07/19/17 21:49 - Orders/Labs/Meds Orders: Active Orders 24 hr Category Date Time Status Patient Status [ADT] Routine ADT 07/19/17 22:17 Active Antiembolic Devices [RC] .Routine Care 07/19/17 22:20 Active Height and Weight [RC] 0600 Care 07/19/17 22:16 Active Intake and Output [RC] QSHIFT Care 07/19/17 22:19 Active Oxygen Therapy [RC] PRN Care 07/19/17 22:19 Active Pulse Oximetry [RC] PRN Care 07/19/17 22:19 Active Up With Assistance [RC] ASDIRECTED Care 07/19/17 22:16 Active VTE/DVT Education [RC] PER UNIT ROUTINE Care 07/19/17 22:20 Active Vital Signs [RC] 04,08,12,16,20,00 Care 07/19/17 22:17 Active 2 Gram Sodium Diet [DIET] Diet 07/19/17 Breakfast Active UA W/MICROSCOPIC [URIN] Routine Lab 07/19/17 23:45 Ordered DVT/VTE Prophylaxis Reflex [OM.PC] Routine Oth 07/19/17 22:16 Ordered Resuscitation Status Routine Resus Stat 07/19/17 22:16 Ordered Medication Orders Furosemide (Lasix) 40 mg IVPUSH BID [facility] Last Admin: 07/19/17 22:52 Dose: 40 mg Insulin Lispro Protam/Lispro Human (Humalog Mix 75-25) 0 unit SUBCUT TID [facility] Metoprolol Tartrate (Lopressor) 50 mg PO DAILY [facility] Simvastatin (Zocor) 20 mg PO DAILY [facility] Tamsulosin HCl (Flomax) 0.4 mg PO DAILY [facility] Warfarin Sodium (Pharmacy To Dose - Warfarin) 1 dose .XX ASDIRECTED [facility] Labs: Laboratory Tests 0607/19/17 07/19/17 Range/Units 19:53 19:53 19:53 WBC 9.5 (5.0-10.0) 10^3/uL RBC 5.31 (4.6-6.2) 10^6/uL Hgb 16.1 (14.0-18.0) g/dL Hct 48.3 (40.0-54.0) % MCV 91.0 (80-100) fL MCH 30.3 (27.0-34.0) pg MCHC 33.3 (33.0-35.0) g/dL Plt Count 142 L (150-450) 10^3/uL Neut % (Auto) 84.1 H (42.2-75.2) % Lymph % (Auto) 8.4 L (20.5-50.1) % [place] % (Auto) 5.0 (2-8) % Eos % (Auto) 2.2 (1.0-3.0) % Baso % (Auto) 0.3 (0.0-1.0) % PT 18.8 H (9.0-12.0) SEC INR 1.9 H (0.9-1.2) Sodium 138 (135-145) mmol/L Potassium 4.4 (3.6-5.0) mmol/L Chloride 102 (101-111) mmol/L Carbon Dioxide 26.0 (21.0-31.0) mmol/L Anion Gap 14.4 BUN 22 H (7-18) mg/dL Creatinine 1.4 H (0.6-1.3) mg/dL Est Cr Clr Drug Dosing 38.38 mL/min Estimated GFR (MDRD) 48 BUN/Creatinine Ratio 15.71 Glucose 145 H (74-105) mg/dL Calcium 9.7 (8.4-10.2) mg/dl Phosphorus (2.5-4.6) mg/dL Magnesium (1.8-2.5) mg/dL Total Bilirubin 0.9 (0.2-1.0) mg/dL AST 22 (10-42) IU/L ALT 13 (10-60) IU/L Alkaline Phosphatase 52 (42-121) IU/L CK-MB (CK-2) (0.4-4.7) ng/mL Troponin I < 0.02 (0.00-0.02) ng/ml B-Natriuretic Peptide 254 H (0-100) pg/ml Total Protein 7.8 (6.7-8.2) g/dl Albumin 4.2 (3.2-5.5) g/dl Globulin 3.6 Albumin/Globulin Ratio 1.17 Amylase 52 (28-100) U/L 07/19/17 07/19/17 Range/Units 19:53 19:53 WBC (5.0-10.0) 10^3/uL RBC (4.6-6.2) 10^6/uL Hgb (14.0-18.0) g/dL Hct (40.0-54.0) % MCV (80-100) fL MCH (27.0-34.0) pg MCHC (33.0-35.0) g/dL Plt Count (150-450) 10^3/uL Neut % (Auto) (42.2-75.2) % Lymph % (Auto) (20.5-50.1) % [place] % (Auto) (2-8) % Eos % (Auto) (1.0-3.0) % Baso % (Auto) (0.0-1.0) % PT (9.0-12.0) SEC INR (0.9-1.2) Sodium (135-145) mmol/L Potassium (3.6-5.0) mmol/L Chloride (101-111) mmol/L Carbon Dioxide (21.0-31.0) mmol/L Anion Gap BUN (7-18) mg/dL Creatinine (0.6-1.3) mg/dL Est Cr Clr Drug Dosing mL/min Estimated GFR (MDRD) BUN/Creatinine Ratio Glucose (74-105) mg/dL Calcium (8.4-10.2) mg/dl Phosphorus 3.0 (2.5-4.6) mg/dL Magnesium 1.6 L (1.8-2.5) mg/dL Total Bilirubin (0.2-1.0) mg/dL AST (10-42) IU/L ALT (10-60) IU/L Alkaline Phosphatase (42-121) IU/L CK-MB (CK-2) 5.00 H (0.4-4.7) ng/mL Troponin I (0.00-0.02) ng/ml B-Natriuretic Peptide (0-100) pg/ml Total Protein (6.7-8.2) g/dl Albumin (3.2-5.5) g/dl Globulin Albumin/Globulin Ratio Amylase (28-100) U/L Meds: Medications Generic Name Dose Route Start Last Admin Trade Name Padmini PRN Reason Stop Dose Admin Furosemide 40 mg 07/19/17 22:00 07/19/17 22:52 Lasix IVPUSH 40 mg BID [facility] Administration Insulin Lispro Protam/Lispro Human 0 unit 07/20/17 09:00 Humalog Mix 75-25 SUBCUT TID [facility] Metoprolol Tartrate 50 mg 07/20/17 09:00 Lopressor PO DAILY [facility] Simvastatin 20 mg 07/20/17 09:00 Zocor PO DAILY [facility] Tamsulosin HCl 0.4 mg 07/20/17 09:00 Flomax PO DAILY [facility] Warfarin Sodium 1 dose 07/19/17 22:30 Pharmacy To Dose - Warfarin .XX ASDIRECTED [facility] Discontinued Medications Generic Name Dose Route Start Last Admin Trade Name Padmini PRN Reason Stop Dose Admin Magnesium Sulfate 2 gm/ Premix 50 mls @ 25 mls/hr 07/19/17 23:01 07/19/17 23: 52 IV 07/20/17 01:00 25 mls/hr ONETIME ONE Administration Metoprolol Tartrate 2.5 mg 07/19/17 20:02 07/19/17 20:27 Lopressor IVPUSH 07/19/17 20:03 2.5 mg ONETIME ONE Administration Warfarin Sodium 3 mg 07/19/17 22:45 Coumadin PO 07/19/17 23:59 ONETIME [facility] - Radiology Interpretation Free Text/Narrative:: CXR, mild congestion, mild cardiac enlargement - Re-Assessments/Exams Free Text/Narrative Re-Assessment/Exam: 07/19/17 21:55 Dr shayy douglas agree to admit [facility] observation for further management mild CHF Departure - Departure Time of Disposition: 21:56 Disposition: Refer to Observation Condition: Fair Clinical Impression: Chronic atrial fibrillation, Chronic anticoagulation Chronic renal failure Qualifiers: Chronic kidney disease stage: unspecified stage Qualified Code(s): N18.9 - Chronic kidney disease, unspecified CHF (congestive heart failure) Qualifiers: Heart failure type: unspecified Heart failure chronicity: acute Qualified Code( s): I50.9 - Heart failure, unspecified BPH (benign prostatic hyperplasia) Qualifiers: Lower urinary tract symptom presence: unspecified whether lower urinary tract symptoms present Qualified Code(s): N40.0 - Benign prostatic hyperplasia without lower urinary tract symptoms - Discharge Information
[2017-07-19] MEDS ORDERED: Warfarin 2 MG Tab PO SCH (22:45)
--- NOTE | 2017-07-19 22:48 | PCM.HP ---
H&P History of Present Illness - General Date of Service: 07/19/17 Admit Problem/Dx: Admission Diagnosis/Problem Admission Diagnosis/Problem CHF, Congestive heart failure Source of Information: Patient, EMS Notes Reviewed, Family History Limitations: Reports: No Limitations - History of Present Illness Initial Comments - Free Text/Narative: The patient is an 86-year-old gentleman with a history of diabetes, atrial fibrillation, on anticoagulation, COPD not on treatment. He lives with at home and normally walk with a walker. He was brought to the ER this evening on account of SOB, chest pain, b/l leg swelling. Family by bedside reports patient has been having b/l leg swelling for the past week. Yesterday he started c/o SOB that is gotten progressively worse. SOB is worse with exertion, improves with rest. He denies othopnea, PND, palpitation. He notes cough x 2 days with whitish sputum. No fever, chills or ill contact. He had chest pain initially but at this time says chest pain has resolved. No abdominal pain. He said he had 2 episode of vomiting yesterday. No calf pain, or recent travel. Today SOB got worse and EMS was activated. On arrival of EMS his saturation was in the 80s. This improve with 2L of supplemental oxygen via [place]. In the ER his O2 sat was 93%. significant labs; BNP elevated at 254, mag 1.6. Onset of Symptoms: Reports: Today, Gradual Duration of Symptoms: Reports: Hour(s):, Day(s): Location: Reports: Lower Extremity, Left Quality: Reports: Dull Severity: Moderate Improves with: Reports: Rest Worsens with: Reports: Movement Associated Symptoms: Reports: No Other Symptoms, Chest Pain, cough w sputum, Nausea/Vomiting - Related Data Allergies/Adverse Reactions: Allergies Allergy/AdvReac Type Severity Reaction Status Date / Time oxycodone Allergy Confusion Verified 04/01/17 12:35 Home Medications: Home Meds Metoprolol Tartrate [Lopressor] 50 mg PO DAILY 04/01/17 [History] Simvastatin [Zocor] 20 mg PO DAILY 04/01/17 [History] Warfarin [Coumadin] 3 mg PO DAILY 04/01/17 [History] metFORMIN HCl [Metformin HCl] 500 mg PO TID 04/01/17 [History] Tamsulosin [Flomax] 1 tab PO DAILY 07/19/17 [History] Past Medical History Cardiovascular History: Reports: Afib, CAD, High Cholesterol, Hypertension, Pacemaker Respiratory History: Reports: COPD Musculoskeletal History: Reports: Gout Endocrine/Metabolic History: Reports: Diabetes, Type II Other Oncologic History: family reports skin cancer - Past Surgical History Cardiovascular Surgical History: Reports: Pacer Social & Family History - Tobacco Use Smoking Status *Q: Never Smoker - Caffeine Use Caffeine Use: Reports: Coffee - Recreational Drug Use Recreational Drug Use: No H&P Review of Systems - Review of Systems: Review Of Systems: See Below General: Reports: Fatigue, Weight Gain HEENT: Reports: No Symptoms Pulmonary: Reports: Shortness of Breath, Cough, Sputum Cardiovascular: Reports: Chest Pain Gastrointestinal: Reports: Nausea, Vomiting Genitourinary: Reports: No Symptoms Musculoskeletal: Reports: No Symptoms Skin: Reports: No Symptoms Psychiatric: Reports: No Symptoms Neurological: Reports: No Symptoms Hematologic/Lymphatic: Reports: No Symptoms Immunologic: Reports: No Symptoms Exam - Exam Exam: See Below - Vital Signs Vital Signs: Last Vital Signs Temp 98.4 F 07/19/17 21:49 Pulse 72 07/19/17 20:27 Resp 20 07/19/17 21:49 BP 175/108 H 07/19/17 21:49 Pulse Ox 93 L 07/19/17 21:49 Weight: 201 lb 9.6 oz - Exam Quality Assessment: Supplemental Oxygen, DVT Prophylaxis General: Alert, Oriented, Cooperative, Mild Distress HEENT: PERRLA, Hearing Intact, Mucosa Moist & [place], Nares Patent, Normal Nasal Septum, Posterior Pharynx Clear, Conjunctiva Clear, EOMI, EACs Clear, TMs Clear Neck: Supple, Trachea Midline, 2 Lungs: Crackles Cardiovascular: Regular Rate, Regular Rhythm GI/Abdominal Exam: Normal Bowel Sounds, Soft, Non-Tender, No Organomegaly, No Distention, No Abnormal Bruit, No Mass, Pelvis Stable (Male) Exam: No Hernia, Normal Inspection, Normal Prostate, Circumcised Rectal (Males) Exam: Deferred Back Exam: Normal Inspection, Full Range of Motion, NT Extremities: Pedal Edema Skin: Warm, Dry, Intact Neurological: Cranial Nerves Intact, Reflexes Equal Bilateral Neuro Extensive - Mental Status: Alert, Oriented x3, Normal Mood/Affect, Normal Cognition Neuro Extensive - Motor, Sensory, Reflexes: CN II-XII Intact, Normal Gait, Normal Reflexes Psychiatric: Alert, Normal Affect, Normal Mood - Patient Data Lab Results Last 24 hrs: Laboratory Results - last 24 hr 07/19/17 07/19/17 07/19/17 Range/Units 19:53 19:53 19:53 WBC 9.5 (5.0-10.0) 10^3/uL RBC 5.31 (4.6-6.2) 10^6/uL Hgb 16.1 (14.0-18.0) g/dL Hct 48.3 (40.0-54.0) % MCV 91.0 (80-100) fL MCH 30.3 (27.0-34.0) pg MCHC 33.3 (33.0-35.0) g/dL Plt Count 142 L (150-450) 10^3/uL Neut % (Auto) 84.1 H (42.2-75.2) % Lymph % (Auto) 8.4 L (20.5-50.1) % [place] % (Auto) 5.0 (2-8) % Eos % (Auto) 2.2 (1.0-3.0) % Baso % (Auto) 0.3 (0.0-1.0) % PT 18.8 H (9.0-12.0) SEC INR 1.9 H (0.9-1.2) Sodium 138 (135-145) mmol/L Potassium 4.4 (3.6-5.0) mmol/L Chloride 102 (101-111) mmol/L Carbon Dioxide 26.0 (21.0-31.0) mmol/L Anion Gap 14.4 BUN 22 H (7-18) mg/dL Creatinine 1.4 H (0.6-1.3) mg/dL Est Cr Clr Drug Dosing 38.38 mL/min Estimated GFR (MDRD) 48 BUN/Creatinine Ratio 15.71 Glucose 145 H (74-105) mg/dL Calcium 9.7 (8.4-10.2) mg/dl Total Bilirubin 0.9 (0.2-1.0) mg/dL AST 22 (10-42) IU/L ALT 13 (10-60) IU/L Alkaline Phosphatase 52 (42-121) IU/L CK-MB (CK-2) (0.4-4.7) ng/mL Troponin I < 0.02 (0.00-0.02) ng/ml B-Natriuretic Peptide 254 H (0-100) pg/ml Total Protein 7.8 (6.7-8.2) g/dl Albumin 4.2 (3.2-5.5) g/dl Globulin 3.6 Albumin/Globulin Ratio 1.17 Amylase 52 (28-100) U/L 07/19/17 Range/Units 19:53 WBC (5.0-10.0) 10^3/uL RBC (4.6-6.2) 10^6/uL Hgb (14.0-18.0) g/dL Hct (40.0-54.0) % MCV (80-100) fL MCH (27.0-34.0) pg MCHC (33.0-35.0) g/dL Plt Count (150-450) 10^3/uL Neut % (Auto) (42.2-75.2) % Lymph % (Auto) (20.5-50.1) % [place] % (Auto) (2-8) % Eos % (Auto) (1.0-3.0) % Baso % (Auto) (0.0-1.0) % PT (9.0-12.0) SEC INR (0.9-1.2) Sodium (135-145) mmol/L Potassium (3.6-5.0) mmol/L Chloride (101-111) mmol/L Carbon Dioxide (21.0-31.0) mmol/L Anion Gap BUN (7-18) mg/dL Creatinine (0.6-1.3) mg/dL Est Cr Clr Drug Dosing mL/min Estimated GFR (MDRD) BUN/Creatinine Ratio Glucose (74-105) mg/dL Calcium (8.4-10.2) mg/dl Total Bilirubin (0.2-1.0) mg/dL AST (10-42) IU/L ALT (10-60) IU/L Alkaline Phosphatase (42-121) IU/L CK-MB (CK-2) 5.00 H (0.4-4.7) ng/mL Troponin I (0.00-0.02) ng/ml B-Natriuretic Peptide (0-100) pg/ml Total Protein (6.7-8.2) g/dl Albumin (3.2-5.5) g/dl Globulin Albumin/Globulin Ratio Amylase (28-100) U/L Result Diagrams: 07/20/17 06:05 07/20/17 06:05 - Problem List (1) SOB (shortness of breath) SNOMED Code(s): 013980054 ICD Code: R06.02 - SHORTNESS OF BREATH Status: Acute Current Visit: Yes Problem List Initiated/Reviewed/Updated: Yes Orders Last 24hrs: Active Orders 24 hr Category Date Time Status Patient Status [ADT] Routine ADT 07/19/17 22:17 Ordered Antiembolic Devices [RC] .Routine Care 07/19/17 22:20 Ordered Height and Weight [RC] DAILY Care 07/19/17 22:16 Ordered Intake and Output [RC] QSHIFT Care 07/19/17 22:19 Ordered Oxygen Therapy [RC] PRN Care 07/19/17 22:19 Ordered Pulse Oximetry [RC] PRN Care 07/19/17 22:19 Ordered Up With Assistance [RC] ASDIRECTED Care 07/19/17 22:16 Ordered VTE/DVT Education [RC] PER UNIT ROUTINE Care 07/19/17 22:20 Ordered Vital Signs [RC] Q4H Care 07/19/17 22:17 Ordered 2 Gram Sodium Diet [DIET] Diet 07/19/17 Breakfast Ordered BASIC METABOLIC PANEL,BMP [CHEM] Routine Lab 07/20/17 05:00 Ordered CBC WITH AUTO DIFF [HEME] Routine Lab 07/20/17 05:00 Ordered MAGNESIUM [CHEM] Routine Lab 07/19/17 22:28 Ordered PHOSPHORUS [CHEM] Routine Lab 07/19/17 22:29 Ordered UA W/MICROSCOPIC [URIN] Routine Lab 07/19/17 22:16 Ordered Furosemide [Lasix] Med 07/19/17 22:00 Ordered 40 mg IVPUSH BID Metoprolol Tartrate [Lopressor] Med 07/20/17 09:00 Ordered 50 mg PO DAILY Simvastatin [Zocor] Med 07/20/17 09:00 Ordered 20 mg PO DAILY Tamsulosin [Flomax] Med 07/20/17 09:00 Ordered 1 tab PO DAILY Warfarin Pharmacy to Dose [Pharmacy to Dose - Warfarin] Med 07/19/17 22:30 Ordered 1 dose .XX ASDIRECTED DVT/VTE Prophylaxis Reflex [OM.PC] Routine Oth 07/19/17 22:16 Ordered Resuscitation Status Routine Resus Stat 07/19/17 22:16 Ordered Medication Orders Furosemide (Lasix) 40 mg IVPUSH BID GABRIELLE Metoprolol Tartrate (Lopressor) 50 mg PO DAILY GABRIELLE Non-Formulary Medication (Simvastatin [Zocor]) 20 mg PO DAILY GABRIELLE Tamsulosin HCl (Flomax) mg PO DAILY GABRIELLE Warfarin Sodium (Pharmacy To Dose - Warfarin) 1 dose .XX ASDIRECTED [facility] Assessment/Plan Comment:: Patient is an 86-year-old gentleman who has been living at home with with PMH of atrial fibrillation, diabetes, chronic anticoagulation, COPD. He presented to the ER via EMS with with SOB x 1 day. Exams revealed pedal edema , bibasilar crackles. BNP mildly elevated at 254. #Acute CHF exacerbation - mild will admit at this time to observation status monitor vitals closely monitor on tele daily weight IV lasix 40 mg bid fluid restriction to 1.5L per day continue metoprolol echo in the AM if available #Acute respiratory failure with hypoxia this is likely due to CHF will continue with supplemental oxygen and wean off as tolerated # h/o COPD Patient not on meds Not in exacerbation at this time. Patient has no wheezing on exam supplemental oxygen and weaned off as tolerated Duo-nebs prn #Hypomagnesemia will replace IV #Right lower extremity edema > left This is chronic He is on Coumadin Not likely DVT Will continue Coumadin and maintain a therapeutic level At this point I don't think vascular ultrasound would change the treatment plan and the need for anticoagulation. #Diabetes Hold metformin given creatinine of 1.4 Insulin sliding scale for now Follow blood sugars and use supplemental insulin and hypoglycemia treatment as needed Repeat BMP in the AM #Atrial fibrillation controlled ventricular rate continue metoprolol Continue Coumadin for ANC monitor on telemetry Diabetic diet Full code
[2017-07-19] MEDS: Furosemide 40 MG/4 ML VIAL IVPUSH SCH (22:52)
[2017-07-19] MEDS ORDERED: Magnesium Sulfate/Water 2 GM in Premix Bag 1 BAG IV ONE (23:01)
[2017-07-20] MEDS: Metoprolol Tartrate 50 MG Tab PO SCH (08:41)
[2017-07-20] MEDS: Tamsulosin 0.4 MG Cap.ER PO SCH (08:42)
[2017-07-20] MEDS: Simvastatin 10 MG Tab PO SCH (08:42)
[2017-07-20] MEDS ORDERED: Insulin Lispro Protamine/Lispro 75-25 100 Units/ML 10 ML Vial SUBCUT SCH (09:00)
--- NOTE | 2017-07-20 09:10 | PCM.PN ---
- General Info Date of Service: 07/20/17 Admission Dx/Problem (Free Text): Admission Diagnosis/Problem Admission Diagnosis/Problem CHF, Congestive heart failure Functional Status: Reports: Pain Controlled - Review of Systems General: Reports: Weakness HEENT: Reports: No Symptoms Pulmonary: Reports: Shortness of Breath, Cough, Sputum Cardiovascular: Reports: Dyspnea on Exertion, Edema Gastrointestinal: Reports: No Symptoms Genitourinary: Reports: No Symptoms Musculoskeletal: Reports: No Symptoms Skin: Reports: No Symptoms Neurological: Reports: No Symptoms Psychiatric: Reports: No Symptoms - Patient Data Vitals - Most Recent: Last Vital Signs Temp 96 F 07/20/17 07:55 Pulse 72 07/20/17 08:41 Resp 24 H 07/20/17 07:55 BP 128/75 07/20/17 08:41 Pulse Ox 96 07/20/17 07:55 Weight - Most Recent: 201 lb 9.6 oz I&O - Last 24 Hours: Intake & Output 07/19/17 07/20/17 07/20/17 22:59 06:59 14:59 Intake Total 240 45 Output Total 200 2310 Balance 40 -2265 Lab Results Last 24 Hours: Laboratory Results - last 24 hr 07/19/17 07/19/17 07/19/17 Range/Units 19:53 19:53 19:53 WBC 9.5 (5.0-10.0) 10^3/uL RBC 5.31 (4.6-6.2) 10^6/uL Hgb 16.1 (14.0-18.0) g/dL Hct 48.3 (40.0-54.0) % MCV 91.0 (80-100) fL MCH 30.3 (27.0-34.0) pg MCHC 33.3 (33.0-35.0) g/dL Plt Count 142 L (150-450) 10^3/uL Neut % (Auto) 84.1 H (42.2-75.2) % Lymph % (Auto) 8.4 L (20.5-50.1) % [place] % (Auto) 5.0 (2-8) % Eos % (Auto) 2.2 (1.0-3.0) % Baso % (Auto) 0.3 (0.0-1.0) % PT 18.8 H (9.0-12.0) SEC INR 1.9 H (0.9-1.2) Sodium 138 (135-145) mmol/L Potassium 4.4 (3.6-5.0) mmol/L Chloride 102 (101-111) mmol/L Carbon Dioxide 26.0 (21.0-31.0) mmol/L Anion Gap 14.4 BUN 22 H (7-18) mg/dL Creatinine 1.4 H (0.6-1.3) mg/dL Est Cr Clr Drug Dosing 38.38 mL/min Estimated GFR (MDRD) 48 BUN/Creatinine Ratio 15.71 Glucose 145 H (74-105) mg/dL Calcium 9.7 (8.4-10.2) mg/dl Phosphorus (2.5-4.6) mg/dL Magnesium (1.8-2.5) mg/dL Total Bilirubin 0.9 (0.2-1.0) mg/dL AST 22 (10-42) IU/L ALT 13 (10-60) IU/L Alkaline Phosphatase 52 (42-121) IU/L CK-MB (CK-2) (0.4-4.7) ng/mL Troponin I < 0.02 (0.00-0.02) ng/ml B-Natriuretic Peptide 254 H (0-100) pg/ml Total Protein 7.8 (6.7-8.2) g/dl Albumin 4.2 (3.2-5.5) g/dl Globulin 3.6 Albumin/Globulin Ratio 1.17 Amylase 52 (28-100) U/L Urine Color (YELLOW) Urine Appearance (CLEAR) Urine pH (5.0-9.0) Ur Specific [place] (1.005-1.030) Urine Protein (NEGATIVE) Urine Glucose (UA) (NEGATIVE) Urine Ketones (NEGATIVE) Urine Occult Blood (NEGATIVE) Urine Nitrite (NEGATIVE) Urine Bilirubin (NEGATIVE) Urine Urobilinogen (0.2-1.0) mg/dL Ur Leukocyte Esterase (NEGATIVE) Urine RBC /HPF Urine WBC (0-5/HPF) /HPF Ur Epithelial Cells /HPF Urine Bacteria (0-FEW/HPF) /HPF 07/19/17 07/19/17 07/19/17 Range/Units 19:53 19:53 23:45 WBC (5.0-10.0) 10^3/uL RBC (4.6-6.2) 10^6/uL Hgb (14.0-18.0) g/dL Hct (40.0-54.0) % MCV (80-100) fL MCH (27.0-34.0) pg MCHC (33.0-35.0) g/dL Plt Count (150-450) 10^3/uL Neut % (Auto) (42.2-75.2) % Lymph % (Auto) (20.5-50.1) % [place] % (Auto) (2-8) % Eos % (Auto) (1.0-3.0) % Baso % (Auto) (0.0-1.0) % PT (9.0-12.0) SEC INR (0.9-1.2) Sodium (135-145) mmol/L Potassium (3.6-5.0) mmol/L Chloride (101-111) mmol/L Carbon Dioxide (21.0-31.0) mmol/L Anion Gap BUN (7-18) mg/dL Creatinine (0.6-1.3) mg/dL Est Cr Clr Drug Dosing mL/min Estimated GFR (MDRD) BUN/Creatinine Ratio Glucose (74-105) mg/dL Calcium (8.4-10.2) mg/dl Phosphorus 3.0 (2.5-4.6) mg/dL Magnesium 1.6 L (1.8-2.5) mg/dL Total Bilirubin (0.2-1.0) mg/dL AST (10-42) IU/L ALT (10-60) IU/L Alkaline Phosphatase (42-121) IU/L CK-MB (CK-2) 5.00 H (0.4-4.7) ng/mL Troponin I (0.00-0.02) ng/ml B-Natriuretic Peptide (0-100) pg/ml Total Protein (6.7-8.2) g/dl Albumin (3.2-5.5) g/dl Globulin Albumin/Globulin Ratio Amylase (28-100) U/L Urine Color Yellow (YELLOW) Urine Appearance Clear (CLEAR) Urine pH 7.0 (5.0-9.0) Ur Specific [place] 1.015 (1.005-1.030) Urine Protein Negative (NEGATIVE) Urine Glucose (UA) Negative (NEGATIVE) Urine Ketones Negative (NEGATIVE) Urine Occult Blood Trace-intact H (NEGATIVE) Urine Nitrite Negative (NEGATIVE) Urine Bilirubin Negative (NEGATIVE) Urine Urobilinogen 0.2 (0.2-1.0) mg/dL Ur Leukocyte Esterase Negative (NEGATIVE) Urine RBC 5-10 H /HPF Urine WBC 0-5 (0-5/HPF) /HPF Ur Epithelial Cells Occasional /HPF Urine Bacteria Occasional (0-FEW/HPF) /HPF 07/20/17 07/20/17 07/20/17 Range/Units 06:05 06:05 06:05 WBC 9.5 (5.0-10.0) 10^3/uL RBC 5.47 (4.6-6.2) 10^6/uL Hgb 16.3 (14.0-18.0) g/dL Hct 49.0 (40.0-54.0) % MCV 89.6 (80-100) fL MCH 29.8 (27.0-34.0) pg MCHC 33.3 (33.0-35.0) g/dL Plt Count 139 L (150-450) 10^3/uL Neut % (Auto) 77.1 H (42.2-75.2) % Lymph % (Auto) 12.6 L (20.5-50.1) % [place] % (Auto) 8.5 H (2-8) % Eos % (Auto) 1.5 (1.0-3.0) % Baso % (Auto) 0.3 (0.0-1.0) % PT 21.0 H (9.0-12.0) SEC INR 2.2 H (0.9-1.2) Sodium 139 (135-145) mmol/L Potassium 3.8 (3.6-5.0) mmol/L Chloride 100 L (101-111) mmol/L Carbon Dioxide 28.0 (21.0-31.0) mmol/L Anion Gap 14.8 BUN 22 H (7-18) mg/dL Creatinine 1.5 H (0.6-1.3) mg/dL Est Cr Clr Drug Dosing 35.82 mL/min Estimated GFR (MDRD) 44 BUN/Creatinine Ratio Glucose 119 H (74-105) mg/dL Calcium 9.7 (8.4-10.2) mg/dl Phosphorus (2.5-4.6) mg/dL Magnesium (1.8-2.5) mg/dL Total Bilirubin (0.2-1.0) mg/dL AST (10-42) IU/L ALT (10-60) IU/L Alkaline Phosphatase (42-121) IU/L CK-MB (CK-2) (0.4-4.7) ng/mL Troponin I (0.00-0.02) ng/ml B-Natriuretic Peptide (0-100) pg/ml Total Protein (6.7-8.2) g/dl Albumin (3.2-5.5) g/dl Globulin Albumin/Globulin Ratio Amylase (28-100) U/L Urine Color (YELLOW) Urine Appearance (CLEAR) Urine pH (5.0-9.0) Ur Specific [place] (1.005-1.030) Urine Protein (NEGATIVE) Urine Glucose (UA) (NEGATIVE) Urine Ketones (NEGATIVE) Urine Occult Blood (NEGATIVE) Urine Nitrite (NEGATIVE) Urine Bilirubin (NEGATIVE) Urine Urobilinogen (0.2-1.0) mg/dL Ur Leukocyte Esterase (NEGATIVE) Urine RBC /HPF Urine WBC (0-5/HPF) /HPF Ur Epithelial Cells /HPF Urine Bacteria (0-FEW/HPF) /HPF Med Orders - Current: Current Medications Furosemide (Lasix) 40 mg IVPUSH BID [facility] Last Admin: 07/19/17 22:52 Dose: 40 mg Insulin Lispro Protam/Lispro Human (Humalog Mix 75-25) 0 unit SUBCUT TID [facility] Metoprolol Tartrate (Lopressor) 50 mg PO DAILY [facility] Last Admin: 07/20/17 08:41 Dose: 50 mg Simvastatin (Zocor) 20 mg PO DAILY [facility] Last Admin: 07/20/17 08:42 Dose: 20 mg Tamsulosin HCl (Flomax) 0.4 mg PO DAILY [facility] Last Admin: 07/20/17 08:42 Dose: 0.4 mg Warfarin Sodium (Pharmacy To Dose - Warfarin) 1 dose .XX ASDIRECTED [facility] Discontinued Medications Magnesium Sulfate 2 gm/ Premix 50 mls @ 25 mls/hr IV ONETIME ONE Stop: 07/20/17 01:00 Last Admin: 07/19/17 23:52 Dose: 25 mls/hr Metoprolol Tartrate (Lopressor) 2.5 mg IVPUSH ONETIME ONE Stop: 07/19/17 20:03 Last Admin: 07/19/17 20:27 Dose: 2.5 mg Warfarin Sodium (Coumadin) 3 mg PO ONETIME GABRIELLE Stop: 07/19/17 23:59 - Exam Quality Assessment: DVT Prophylaxis General: Alert, Oriented HEENT: Pupils Equal, Pupils Reactive, EOMI, Mucous Membr. Moist/[place] Neck: Supple Lungs: Clear to Auscultation, Normal Respiratory Effort Cardiovascular: Regular Rate, Regular Rhythm GI/Abdominal Exam: Normal Bowel Sounds, Soft, Non-Tender, No Organomegaly, No Distention, No Abnormal Bruit, No Mass, Pelvis Stable (Male) Exam: No Hernia, Normal Inspection, Normal Prostate, Circumcised Back Exam: Normal Inspection, Full Range of Motion Extremities: Normal Range of Motion, Non-Tender, Normal Capillary Refill, Pedal Edema Skin: Warm, Dry, Intact Wound/Incisions: Healing Well Neurological: No New Focal Deficit Psy/Mental Status: Alert, Normal Affect, Normal Mood - Problem List & Annotations (1) SOB (shortness of breath) SNOMED Code(s): 896206801 Code(s): R06.02 - SHORTNESS OF BREATH Status: Acute Current Visit: Yes - Problem List Review Problem List Initiated/Reviewed/Updated: Yes - My Orders Last 24 Hours: My Active Orders 07/19/17 22:00 Furosemide [Lasix] 40 mg IVPUSH BID 07/19/17 22:16 Height and Weight [RC] 0600 Up With Assistance [RC] ASDIRECTED DVT/VTE Prophylaxis Reflex [OM.PC] Routine Resuscitation Status Routine 07/19/17 22:17 Patient Status [ADT] Routine Vital Signs [RC] 04,08,12,16,20,00 07/19/17 22:19 Intake and Output [RC] QSHIFT Oxygen Therapy [RC] PRN Pulse Oximetry [RC] PRN 07/19/17 22:20 Antiembolic Devices [RC] .Routine VTE/DVT Education [RC] PER UNIT ROUTINE 07/19/17 22:30 Warfarin Pharmacy to Dose [Pharmacy to Dose - Warfarin] 1 dose .XX ASDIRECTED 07/19/17 23:45 UA W/MICROSCOPIC [URIN] Routine 07/20/17 08:59 Blood Glucose Check, Bedside [RC] [facility] 07/20/17 09:00 Insulin Lispro Prot/Lispro [HumaLOG Mix 75-25] 0 unit SUBCUT TID Metoprolol Tartrate [Lopressor] 50 mg PO DAILY Simvastatin [Zocor] 20 mg PO DAILY Tamsulosin [Flomax] 0.4 mg PO DAILY - Plan Plan:: Patient is an 86-year-old gentleman who has been living at home with with PMH of atrial fibrillation, diabetes, chronic anticoagulation, COPD. He presented to the ER on 07/19 via EMS with with SOB x 1 day. Exams revealed pedal edema, bibasilar crackles. BNP mildly elevated at 254. #Acute CHF exacerbation - mild Improving monitor vitals closely monitor on tele daily weight IV lasix 40 mg bid fluid restriction to 1.5L per day continue metoprolol echo if available #Acute respiratory failure with hypoxia Resolved. Now on RA This was likely due to CHF #[facility]I - likely pre-renal creatinine 1.5 patient on lasix for CHF will continue lasix and encourage oral hydration BMP q12h to monitor renal function closely If creatinine continue to trend up, will d/c lasix and give IVF gently # h/o COPD Patient not on meds Not in exacerbation at this time. Patient has no wheezing on exam supplemental oxygen prn Duo-nebs prn #Hypomagnesemia replaced will recheck level #Right lower extremity edema > left This is chronic He is on Coumadin Not likely DVT Will continue Coumadin and maintain a therapeutic level At this point I don't think vascular ultrasound would change the treatment plan and the need for anticoagulation. #Diabetes controlled Hold metformin given creatinine of 1.4 Insulin sliding scale for now Follow blood sugars and use supplemental insulin and hypoglycemia treatment as needed Repeat BMP in the AM #Atrial fibrillation controlled ventricular rate continue metoprolol Continue Coumadin for ANC monitor on telemetry #weakness PT/OT Diabetic diet Full code Despositions SW for placement
[2017-07-20] MEDS: Furosemide 40 MG/4 ML VIAL IVPUSH SCH ×2 (09:20→21:28)
[2017-07-20] MEDS: Insulin Lispro Protamine/Lispro 75-25 100 Units/ML 10 ML Vial SUBCUT SCH ×2 (12:12→17:26)
[2017-07-20] MEDS ORDERED: Albuterol/Ipratropium 3.0-0.5 MG/3 ML Neb Soln NEB PRN (17:34)
--- NOTE | 2017-07-20 18:31 | EKG ---
07/19/2017 - RADHA LESLIE - TIME: 7:47 p.m. FINDINGS: As per my reading, ventricular paced complexes with right bundle branch block. [facility] /[id number]
[2017-07-20] MEDS ORDERED: Potassium Chloride 10 MEQ Tab.ER PO ONE (21:16)
[2017-07-21] MEDS: Insulin Lispro Protamine/Lispro 75-25 100 Units/ML 10 ML Vial SUBCUT SCH ×2 (09:18→11:52)
[2017-07-21] MEDS: Simvastatin 10 MG Tab PO SCH (09:18)
[2017-07-21] MEDS: Metoprolol Tartrate 50 MG Tab PO SCH (09:18)
[2017-07-21] MEDS: Tamsulosin 0.4 MG Cap.ER PO SCH (09:18)
--- NOTE | 2017-07-21 10:01 | PCM.DCSUM1 ---
Discharge Summary - Hospital Course Free Text/Narrative:: Patient is an 86-year-old gentleman who has been living at home with with PMH of atrial fibrillation, diabetes, chronic anticoagulation, COPD. He presented to the ER on 07/19 via EMS with with SOB x 1 day. Exams revealed pedal edema, bibasilar crackles. BNP mildly elevated at 254. #Acute CHF exacerbation resolved with diuretics started lasix and K supplement continue metoprolol obtain echo as out pt #Acute respiratory failure with hypoxia Resolved. Now on RA This was likely due to CHF #CHI - likely pre-renal CKD III as baseline due to increased diuretics cut back dose of lasix monitor renal function periodically # h/o COPD Patient not on meds Not in exacerbation at this time. Patient has no wheezing on exam Duo-nebs prn #Diabetes controlled Hold metformin given CKD Insulin with meals for now #Atrial fibrillation controlled ventricular rate continue metoprolol Continue Coumadin for ANC monitor on telemetry #weakness recommended further PT/OT in NH setting Diagnosis: Stroke: No - Discharge Data Discharge Date: 07/21/17 Discharge Disposition: DC/Tfer to [facility] Condition: Good - Patient Summary/Data Consults: Consultations 07/20/17 09:37 OT Evaluation and Treatment [CONS] Routine PT Evaluation and Treatment [CONS] Routine - Patient Instructions Activity: As Tolerated - Discharge Plan Prescriptions/Med Rec: Albuterol/Ipratropium [DuoNeb 3.0-0.5 MG/3 ML] 3 ml NEB Q6HRRT PRN #30 neb PRN Reason: Shortness Of Breath Furosemide [Lasix] 20 mg PO DAILY #30 tablet Insulin Lispro Prot/Lispro [HumaLOG Mix 75-25] 5 unit SUBCUT TIDMEALS #1 vial Potassium Chloride 10 meq PO DAILY #30 capsule.er Home Medications: Home Meds Metoprolol Tartrate [Lopressor] 50 mg PO DAILY 04/01/17 [History] Simvastatin [Zocor] 20 mg PO DAILY 04/01/17 [History] Warfarin [Coumadin] 3 mg PO DAILY 04/01/17 [History] Tamsulosin [Flomax] 1 tab PO DAILY 07/19/17 [History] Albuterol/Ipratropium [DuoNeb 3.0-0.5 MG/3 ML] 3 ml NEB Q6HRRT PRN #30 neb 07/21 [Rx] Furosemide [Lasix] 20 mg PO DAILY #30 tablet 07/21/17 [Rx] Insulin Lispro Prot/Lispro [HumaLOG Mix 75-25] 5 unit SUBCUT TIDMEALS #1 vial [Rx] Potassium Chloride 10 meq PO DAILY #30 capsule.er 07/21/17 [Rx] Referrals: Jose Vazquez MD [Primary Care Provider] - (in 3-4 days with BMP re: chf , diuretics) - Discharge Summary/Plan Comment DC Time >30 min.: Yes (filling out [place] admission docs) - General Info Date of Service: 07/21/17 Admission Dx/Problem (Free Text: Admission Diagnosis/Problem Admission Diagnosis/Problem CHF, Congestive heart failure Functional Status: Reports: Pain Controlled - Review of Systems General: Reports: Weakness. Denies: Fever Pulmonary: Denies: Shortness of Breath Cardiovascular: Denies: Chest Pain Gastrointestinal: Denies: Abdominal Pain - Patient Data Vitals - Most Recent: Last Vital Signs Temp 36.6 C 07/21/17 07:00 Pulse 92 07/21/17 09:18 Resp 18 07/21/17 07:00 BP 119/84 07/21/17 09:18 Pulse Ox 93 L 07/21/17 07:00 Weight - Most Recent: 79.379 kg I&O - Last 24 hours: Intake & Output 07/20/17 07/21/17 07/21/17 22:59 06:59 14:59 Intake Total 50 Output Total 130 150 Balance -80 -150 Lab Results - Last 24 hrs: Laboratory Results - last 24 hr 07/20/17 07/20/17 07/20/17 Range/Units 06:05 07:30 11:04 PT (9.0-12.0) SEC INR (0.9-1.2) Sodium (135-145) mmol/L Potassium (3.6-5.0) mmol/L Chloride (101-111) mmol/L Carbon Dioxide (21.0-31.0) mmol/L Anion Gap BUN (7-18) mg/dL Creatinine (0.6-1.3) mg/dL Est Cr Clr Drug Dosing mL/min Estimated GFR (MDRD) Glucose (74-105) mg/dL POC Glucose 112 H 131 H (83-110) mg/dl Calcium (8.4-10.2) mg/dl B-Natriuretic Peptide 394 H (0-100) pg/ml 07/20/17 07/20/17 07/21/17 Range/Units 17:03 20:04 06:15 PT (9.0-12.0) SEC INR (0.9-1.2) Sodium 139 139 (135-145) mmol/L Potassium 3.5 L 3.8 (3.6-5.0) mmol/L Chloride 97 L 100 L (101-111) mmol/L Carbon Dioxide 33.0 H 30.0 (21.0-31.0) mmol/L Anion Gap 12.5 12.8 BUN 26 H 27 H (7-18) mg/dL Creatinine 1.8 H 1.6 H (0.6-1.3) mg/dL Est Cr Clr Drug Dosing 29.85 33.59 mL/min Estimated GFR (MDRD) 36 41 Glucose 98 100 (74-105) mg/dL POC Glucose 86 (83-110) mg/dl Calcium 9.5 9.4 (8.4-10.2) mg/dl B-Natriuretic Peptide (0-100) pg/ml 07/21/17 Range/Units 06:15 PT 23.3 H (9.0-12.0) SEC INR 2.4 H (0.9-1.2) Sodium (135-145) mmol/L Potassium (3.6-5.0) mmol/L Chloride (101-111) mmol/L Carbon Dioxide (21.0-31.0) mmol/L Anion Gap BUN (7-18) mg/dL Creatinine (0.6-1.3) mg/dL Est Cr Clr Drug Dosing mL/min Estimated GFR (MDRD) Glucose (74-105) mg/dL POC Glucose (83-110) mg/dl Calcium (8.4-10.2) mg/dl B-Natriuretic Peptide (0-100) pg/ml Med Orders - Current: Current Medications Albuterol/Ipratropium (Duoneb 3.0-0.5 Mg/3 Ml) 3 ml NEB Q6HRRT PRN PRN Reason: Shortness of Breath Insulin Lispro Protam/Lispro Human (Humalog Mix 75-25) 5 unit SUBCUT TIDMEALS GABRIELLE Last Admin: 07/21/17 09:18 Dose: 5 units Metoprolol Tartrate (Lopressor) 50 mg PO DAILY [facility] Last Admin: 07/21/17 09:18 Dose: 50 mg Simvastatin (Zocor) 20 mg PO DAILY [facility] Last Admin: 07/21/17 09:18 Dose: 20 mg Tamsulosin HCl (Flomax) 0.4 mg PO DAILY [facility] Last Admin: 07/21/17 09:18 Dose: 0.4 mg Warfarin Sodium (Pharmacy To Dose - Warfarin) 1 dose .XX ASDIRECTED [facility] Discontinued Medications Furosemide (Lasix) 40 mg IVPUSH BID [facility] Last Admin: 07/20/17 21:28 Dose: Not Given Magnesium Sulfate 2 gm/ Premix 50 mls @ 25 mls/hr IV ONETIME ONE Stop: 07/20/17 01:00 Last Admin: 07/19/17 23:52 Dose: 25 mls/hr Insulin Lispro Protam/Lispro Human (Humalog Mix 75-25) 0 unit SUBCUT TID [facility] Last Admin: 07/20/17 10:01 Dose: 5 units Metoprolol Tartrate (Lopressor) 2.5 mg IVPUSH ONETIME ONE Stop: 07/19/17 20:03 Last Admin: 07/19/17 20:27 Dose: 2.5 mg Potassium Chloride (Klor-Con 10) 20 meq PO ONETIME ONE Stop: 07/20/17 21:17 Last Admin: 07/20/17 21:31 Dose: 20 meq Warfarin Sodium (Coumadin) 3 mg PO ONETIME [facility] Stop: 07/19/17 23:59 Warfarin Sodium (Coumadin) 3 mg PO ONETIME ONE Stop: 07/20/17 14:01 Last Admin: 07/20/17 15:03 Dose: 3 mg - Exam Quality Assessment: Denies: Supplemental Oxygen General: Reports: Alert, Oriented Neck: Reports: Supple Lungs: Reports: Normal Respiratory Effort, Decreased Breath Sounds. Denies: Wheezing Cardiovascular: Reports: Regular Rate, Regular Rhythm GI/Abdominal Exam: Normal Bowel Sounds, Soft, Non-Tender Extremities: No Pedal Edema
== END 2017-07-21 12:52 ==
LOC: DL.ED 19:42 → UNDOADMOB 21:43 → DL.MS 21:43
PROVIDERS: ADMIT Student in an Organized Health Care Education/Training Program; ATTEND Student in an Organized Health Care Education/Training Program
DX: J96.01 Acute respiratory failure with hypoxia (principal); J44.1 Chronic obstructive pulmonary disease with (acute) exacerbation; E11.22 Type 2 diabetes mellitus with diabetic chronic kidney disease; N18.3 Chronic kidney disease, stage 3 (moderate); N17.9 Acute kidney failure, unspecified; I48.91 Unspecified atrial fibrillation; I50.9 Heart failure, unspecified; E83.42 Hypomagnesemia; Z79.01 Long term (current) use of anticoagulants; Z79.4 Long term (current) use of insulin; Z79.899 Other long term (current) drug therapy; Z88.5 Allergy status to narcotic agent
CPT/HCPCS: 36415; 71045; 80048; 80053; 81001; 82150; 82553; 82962; 83735; 83880; 84100; 84484; 85025; 85610; 93005; 93010; 96374; 97165; 99217; 99226; 99284; 99285; A9270; J1815; J1940; 96365; 96366; 96375; 96376; 97162-GP; G0378; J3475; J3490